=== PATIENT | female | born 1980 | race Caucasian/White ===

== ENCOUNTER 2023-03-19 14:10 | Emergency (ER) | payer MEDICAID ==
[~2023-03-19] VITALS: Ht 160 cm; Wt 89.8 kg
[2023-03-19 14:35] VITALS: BP_SYST 132; PULSE 80; RESP 18; TEMP 98.3; O2SAT 97
[2023-03-19 15:28] LABS: BASOPHILS # (AUTO) 0.1 K/uL (0.0-0.2); BASOPHILS % (AUTO) 0.6 % (0.0-2.0); EOSINOPHILS # (AUTO) 0.7 K/uL (0.0-0.4); EOSINOPHILS % (AUTO) 7.1 % (0.0-4.0); HEMATOCRIT 40.5 % (36-48); HEMOGLOBIN 13.3 g/dL (12.0-16.0); LYMPHOCYTES # (AUTO) 3.4 K/uL (1.0-5.5); LYMPHOCYTES % (AUTO) 37.2 % (20.5-51.5); MEAN CORPUSCULAR HEMOGLOBIN 31 pg (27-31); MEAN CORPUSCULAR HGB CONC 33 % (32-36); MEAN CORPUSCULAR VOLUME 93 fL (79.0-98.0); MONOCYTES # (AUTO) 0.5 K/uL (0.0-1.0); MONOCYTES % (AUTO) 4.9 % (1.7-9.3); NEUTROPHILS # (AUTO) 4.6 K/uL (1.8-7.7); NEUTROPHILS % (AUTO) 50.2 % (40.0-70.0); PLATELET COUNT (AUTO) 284 K/uL (130-430); RED BLOOD CELL COUNT(AUTO) 4.36 MIL/uL (4.2-6.2); RED CELL DISTRIBUTION WIDTH 13.7 % (9.0-15.0); WHITE BLOOD COUNT (AUTO) 9.2 K/uL (4.8-10.8)
[2023-03-19 15:50] LABS: ANION GAP 9 (5-15); CALCIUM 8.4 mg/dL (8.4-11.0); CARBON DIOXIDE 28 mmol/L (23-29); CHLORIDE 104 mmol/L (98-107); CREATININE 0.68 mg/dL (0.55-1.30); GFR AFRICAN AMERICAN 123 mL/min (>90); GLUCOSE 93 mg/dL (74-106); POTASSIUM 3.5 mmol/L (3.5-5.1); SODIUM SERUM 141 mmol/L (136-145); UREA NITROGEN, BLOOD 8 mg/dL (8-21)
[2023-03-19 15:53] LABS: GFR NON AFRICAN-AMERICAN 102 mL/min (>90)
[2023-03-19 15:58] LABS: ALANINE AMINOTRANSFERASE 17 U/L (12-78); ALBUMIN 3.5 g/dL (3.4-4.8); ASPARTATE AMINOTRANSFERASE 10 U/L (10-37); TOTAL BILIRUBIN 0.5 mg/dL (0.0-1.0)
[2023-03-19 16:36] LABS: SERUM HCG (QUALITATIVE) NEGATIVE (NEGATIVE)
[2023-03-19] MEDS ORDERED: IBUPROFEN 800 MG TABLET PO ONE (17:45)
[2023-03-19 17:46] VITALS: BP_SYST 102; PULSE 85; RESP 18; TEMP 98.3; O2SAT 98
[2023-03-19] MEDS ORDERED: DICL20GE TP (17:49)
[2023-03-19] MEDS ORDERED: IBUP-1971 PO (17:49)
== END 2023-03-19 17:46 | disposition home or self-care (01) ==
LOC: SED 14:10
DX: M94.0 Chondrocostal junction syndrome [Tietze] (principal); R07.89 Other chest pain; Z79.899 Other long term (current) drug therapy
CPT/HCPCS: 36415; 80053; 84484; 84703; 85025; 93005; 99284